=== PATIENT | male | born 1975 | race American Indian/Alaskan Native ===

== ENCOUNTER 2018-07-15 12:43 | Day surgery (SDC) | payer OTHER ==
[2018-07-15] MEDS ORDERED: LR 1,000 ML IV ONE (13:14)
--- NOTE | 2018-07-15 13:58 | PDGENHP ---
History & Physical Chief Complaint: Lower abdominal pain. Constipation History of Present Illness: Chronic LLQ pain. History of diverticulitis x2. Chronic constipation. 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 Chronic constipation. Diverticulitis. SH: THC use Relevant Physical Exam: NAD. CTA B/L. RRR without m/r/g. GI TTP LLQ. Soft. Hypoactive BS. No mass. No R/G Cardiorespiratory Assessment: Colonoscopy with MAC/IV sedation. ASA II
--- NOTE | 2018-07-15 14:09 | PDANEPAE ---
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 CHRISTENSEN VIDYA PLACED FOR STABILITY 1989 - Endocrine History Hx Diabetes: No - Renal History Hx Renal Disorders: Yes Renal History Comment: KIDNEY STONES. SELF CATH'S INTERMITTENTLY. NEUROGENIC BLADDER DISORDER - Liver History Hx Hepatic Disorders: No - Neurological & Psychiatric Hx Hx Neurological and Psychiatric Disorders: No - Cancer History Hx Cancer: No - Congenital Disorder History Hx Congenital Disorders: No - GI History Hx Gastrointestinal Disorders: Yes Gastrointestinal History Comment: DIVERTICULITIS - Other Health History Other Health History: NONE - Chronic Pain History Chronic Pain: Yes (CHRONIC ABD PAIN) - Surgical History Prior Surgeries: KIDNEY STONE REMOVED. CARPAL TUNNEL REPAIR BILATERALLY 2001. CHRISTENSEN VIDYA INSERTION FOR STABILITY OF T6-7 SPINAL CORD INJURY. ULNAR TUNNEL RELEASE 2001 ANE Review of Systems Review of systems is: negative Review of Systems: - Exercise capacity METS (RN): 4 METS ANE Patient History - Allergies Allergies/Adverse Reactions: meperidine HCl [From Demerol] Allergy (Verified 12/07/15 16:46) Vomiting sulfamethoxazole [From Bactrim] Allergy (Verified 12/07/15 16:46) Hives trimethoprim [From Bactrim] Allergy (Verified 12/07/15 16:46) Hives - Home Medications Home medications: home medication list seen and reviewed Home Medications: Herbals/Supplements -Info Only 07/10/18 [Last Taken Unknown] - NPO status NPO Status: no food or drink >8 hours NPO Since - Liquids (Date): 07/15/18 NPO Since - Liquids (Time): 10:00 NPO Since - Solids (Date): 07/13/18 NPO Since - Solids (Time): 08:00 - Smoking Hx Smoking Status: Never smoked - Family Anes Hx Family Hx Anesthesia Complications: NONE ANE Labs/Vital Signs - Vital Signs Vital Signs: reviewed preoperatively; see RN documention for details Blood Pressure: 117/69 Heart Rate: 82 Respiratory Rate: 16 O2 Sat (%): 96 Height: 177.8 cm Weight: 72.575 kg ANE Physical Exam - Airway Neck exam: FROM Mallampati Score: Class 1 Mouth exam: normal dental/mouth exam - Pulmonary Pulmonary: no respiratory distress - Cardiovascular Cardiovascular: regular rate and rhythym - ASA Status ASA Status: III ANE Anesthesia Plan Anesthesia Plan: GA with mask
[2018-07-15] MEDS ORDERED: NS 500 ML IV PRN (14:10)
[2018-07-15] MEDS ORDERED: fentaNYL 100 MCG/2 ML INJ IVP PRN (14:10)
[2018-07-15] MEDS ORDERED: NALOXONE HCL 0.4 MG/ML INJ IVP PRN (14:10)
[2018-07-15] MEDS ORDERED: ALBUTEROL 3 ML DEYVIAL IH PRN (14:10)
[2018-07-15] MEDS ORDERED: LR 500 ML IV PRN (14:10)
[2018-07-15] MEDS ORDERED: ONDANSETRON 4 MG/2 ML VIAL IVP PRN (14:10)
[2018-07-15] MEDS ORDERED: PROPOFOL/EMULSION 500 MG/50 ML BOTTLE IV ONE (14:27)
--- NOTE | 2018-07-15 14:57 | GIREPORT ---
[facility] Surgical Services - Endoscopy Department Patient Name: Erick Amor Procedure Date: 07/15/2018 1:58 PM Patient Type: Outpatient Attending MD/ ER Physician: Ketan Carr MD Procedure: Colonoscopy Indications: Abdominal pain in the left lower quadrant, Change in bowel habits, Slow transit constipation Providers: Ketan Carr MD Medicines: Propofol per Anesthesia Complications: No immediate complications. Description of Procedure: After obtaining informed consent, the scope was passed under direct vis ion. Throughout the procedure, the patient's blood pressure, pulse, and oxyg en saturations were monitored continuously. The Colonoscope with irrigatio n channel was introduced through the anus and advanced to the cecum, identified by appendiceal orifice and ileocecal valve. The colonoscopy was performed without difficulty. The patient tolerated the procedure well. The quality of the bowel preparation was excellent. The ileocecal valve, appendiceal orifice, and rectum were photographed. Findings: The perianal and digital rectal examinations were normal. Pertinent negatives include normal sphincter tone, no palpable rectal lesions and normal prostate (size, shape, and consistency). Anal papilla(e) were hypertrophied. The exam was otherwise without abnormality. Estimated Blood Loss: Estimated blood loss: none. Post Op Diagnosis: - Anal papilla(e) were hypertrophied. - The examination was otherwise normal. - No specimens collected. - I suspect some of his symptoms are related to chronic slow transit constipation given his paraplegia. - There are no diverticula to support a post-diverticulitis irritable b owel syndrome diagnosis. Recommendation: - Repeat colonoscopy in 10 years for screening purposes. - Return to referring physician as previously scheduled. - Resume previous diet. - Continue present medications. - Patient has a contact number available for emergencies. The signs and symptoms of potential delayed complications were discussed with the pat ient. Return to normal activities tomorrow. Written discharge instructions we re provided to the patient. - Thank you for allowing me to be involved in the care of your patient. Attending Participation: I personally performed the entire procedure without the assistance of a fellow, resident or surg ical housekeeper and laundry assistant. Ketan Carr MD Ketan Carr MD 07/15/2018 2:57:22 PM This report has been signed electronicallyDavid MD Lilly Number of Addenda: 0 Note Initiated On: 07/15/2018 1:58 PM Total Procedure Duration Time 0 hours 12 minutes 44 seconds [email or web address]
[2018-07-15 17:16] VITALS: BP 118/74
== END 2018-07-15 17:10 | disposition home or self-care (01) ==
LOC: FSGY 12:43
PROVIDERS: ATTEND Internal Medicine Gastroenterology
PROC: 0DJD8ZZ Inspection of Lower Intestinal Tract, Via Natural or Artificial Opening Endoscopic (ICD-10-PCS; principal; 2018-07-15 13:45)
DX: K59.01 Slow transit constipation (principal); R10.30 Lower abdominal pain, unspecified; G82.22 Paraplegia, incomplete; S24.109S Unspecified injury at unspecified level of thoracic spinal cord, sequela; Z87.442 Personal history of urinary calculi
CPT/HCPCS: J2704

== ENCOUNTER → 2018-07-22 | Outpatient (CLI) | payer OTHER | LOC: FIMAGING 14:31 | DX: R68.89 Other general symptoms and signs (principal) ==

== ENCOUNTER → 2018-09-29 | Outpatient (CLI) | payer OTHER | LOC: CREHS 10:02 ==